=== PATIENT | female | born 1940 | race Caucasian/White ===

== ENCOUNTER → 2023-05-06 10:56 | Outpatient (CLI) | payer MEDICARE, SELFPAY ==
--- NOTE | ~2023-05-06 | MR_ITS ---
EXAMINATION: MR MRCP wo con/w 3D wo ind pp DATE: 05/06/2023 11:59 INDICATION: Cystic dilation of the common bile duct TECHNIQUE: Magnetic resonance imaging (MRI) of the abdomen was performed without intravenous contrast . Sequences included coronal T2-weighted SS-FSE, coronal T2-weighted FS SS-FSE, coronal T2-weighted F S FIESTA, axial T2-weighted FS FIESTA, axial T2-weighted FIESTA, sagittal T2-weighted SS-FSE, axial T 1-weighted dual-echo FSPGR, axial T2-weighted SS-FSE, axial T1-weighted LAVA, axial T2-weighted STIR FSE. Thick-slab T2-weighted FRFSE-XL images were obtained for magnetic resonance cholangiopancreatogr aphy (MRCP). Rotating maximum intensity projection 3-D reconstructions of the volumetric data were cr eated by the technologist. COMPARISON: None. FINDINGS: ABDOMEN MRI: Heart size is normal. Linear and nonspecific small patchy regions of increased signal in the bilatera l lower lungs most prominent in the left lower lobe which could represent atelectasis or pneumonia. L iver, spleen, pancreas and bilateral adrenal glands are normal. There are bilateral T2 hyperintense r enal cysts the largest on the left measuring 2.0 cm. There are few tiny low signal intensity filling defects consistent with gallstones in the dependent fundus of the normal-appearing gallbladder. There is gas scattered throughout the colon. No dilated loops of bowel to suggest obstruction. No patholog ically enlarged abdominal lymphadenopathy. Mild lumbar dextrocurvature with moderate spondylosis. The re is grade 1 retrolisthesis L1 on L2, L2 on L3 and L3 on L4 and grade 1 anterolisthesis L4 on L5. Ch ronic T11 compression fracture with 20% anterior vertebral body height loss. Metallic magnetic field artifact . 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 ABDOMEN MRCP: The common bile duct is mildly dilated to 7 mm but with gradual tapering in the distal common bile du ct without evident filling defects to suggest choledocholithiasis. No intrahepatic biliary ductal dil ation. Pancreatic duct is also normal in caliber. IMPRESSION: 1. Mildly dilated common bile duct measuring up to 7 mm with cholelithiasis but no evident choledocho lithiasis or intrahepatic biliary ductal dilation. 2. Bibasilar lung disease which could represent atelectasis or pneumonia. Reviewed, dictated and finalized at location B. RVISOR ELECTROLYTIC TINNING IMPRESSION: 1. Mildly dilated common bile duct measuring up to 7 mm with cholelithiasis but no evident choledocholithiasis or intrahepatic biliary ductal dilation. 2. Bibasilar lung disease which could represent atelectasis or pneumonia.
== END ==
PROVIDERS: PCP Internal Medicine Gastroenterology; Visit Provider Internal Medicine Gastroenterology
DX: K83.5 Biliary cyst (principal); R91.8 Other nonspecific abnormal finding of lung field
CPT/HCPCS: 74181; 76376